=== PATIENT | female | born 1990 ===

== ENCOUNTER 2023-06-25 07:31 | Outpatient (AMB) | payer OTHER, SELFPAY ==
--- NOTE | 2023-06-25 07:38 | MHC.PC.OV ---
Vital Signs 06/25/23 07:40 Height 5 ft 5 in Weight 155 lb BMI 25.8 BP 118/80 Blood Pressure Location Rt brachial Position Sitting Pulse 74 Pulse Source Pulse Oximeter Pulse Oximetry (%) 98 Oxygen Delivery Method Room Air Intake Visit Reasons: Mirror Silverer Request PE Intake Note: Pt is here today for PE. 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 Patient moved from [facility] she works in [employer] Surgical History (Updated 06/25/23 @ 09:10 by Cindy Valencia MD) H/O right wrist surgery Family History Father Hypertension Mother No problems noted. Social History (Updated 06/25/23 @ 08:18 by Cindy Valencia MD) Household Members Other:: lives 2 children (9,8), works for [employer] Housing: House Patient Tobacco Use Status: Never used Tobacco e-Cigarette/Vaping Use: Never Used service: Yes Current occupational status: employed Cognitive needs: No Hearing needs: No Vision needs: No Questionnaire PHQ-9 Over the last 2 weeks, how often have you been bothered by any of the following problems? 1. Little interest or pleasure in doing things: not at all 2. Feeling down, depressed, or hopeless: not at all 3. Trouble falling or staying asleep, or sleeping too much: not at all 4. Feeling tired or having little energy: not at all 5. Poor appetite or overeating: not at all 6. Feeling bad about yourself - or that you are a failure or have let yourself or your family down: not at all 7. Trouble concentrating on things, such as reading the newspaper or watching television: not at all 8. Moving or speaking so slowly that other people could have noticed. Or the opposite - being so fidgety or restless that you have been moving around a lot more than usual: not at all 9. Thoughts that you would be better off or of hurting yourself in some way: not at all Total score: 0 Depression Screening Interpretation: Negative Depression Screening Done: Yes Source: Developed by Drs. Lio Landry, Anahy Natarajan, Kirk Luu and colleagues, with an educational jenny from [employer]. Thrive Questionnaire Date Thrive assessed: 06/25/23 I am a: Patient What is your living situation today?: I have a steady place to live Within the past 12 months, did the food you bought not last and you didn't have the money to get more?: Never true Within the past 12 months, did you worry whether your food would run out before you got money to buy more?: Never true Do you have trouble paying for medicines?: No Do you have trouble getting transportation to medical appointments?: No Do you have trouble paying your heating and electricity bill?: No Do you have trouble taking care of your child, family member or friend?: No Do you have trouble with day-to-day activities such as bathing, preparing meals, shopping, managing finances, etc.?: No Are you currently unemployed and looking for a job?: No Are you interested in more education?: No Please select the resources that you would like help with: None Currently or been in a relationship where the following occur: no concerns reported THRIVE Score: 0 AUDIT C Alcohol Use Questionnaire (AUDIT-C) 1. How often do you have a drink containing alcohol?: Monthly or less 2. How many drinks containing alcohol do you have on a typical day when you are drinking?: 1 or 2 3. How often do you have six or more drinks on one occasion?: Never Total Score: 1 IRISH-7 AMB Questionnaire IRISH-7 Date IRISH - 7 assessed: 06/25/23 Feeling nervous, anxious, or on edge: 0 = Not at all Not being able to stop or control worryin = Not at all Worrying too much about different things: 0 = Not at all Trouble relaxin = Not at all Being so restless that it is hard to sit still: 0 = Not at all Becoming easily annoyed or irritable: 0 = Not at all Feeling afraid as if something awful might happen: 0 = Not at all Total IRISH-7 score (0-4 normal; 5-9 mild; 10-14 moderate; 15-21 severe): 0 Source: Developed by Drs. Lio Landry, Anahy Natarajan, Kirk Luu and colleagues, with an educational jenny from [employer]. Review of Systems Const All systems reviewed & are unremarkable except as noted in HPI and below Reports no additional complaints Eyes Reports no additional complaints ENT Reports no additional complaints Card Reports no additional complaints Resp Reports no additional complaints GI Reports no additional complaints Reports no additional complaints Physical exam (Primary Care) Vital Signs: Last Vital Signs Pulse 74 06/25/23 07:40 BP 118/80 06/25/23 07:40 Pulse Ox 98 06/25/23 07:40 Oxygen Delivery Method Room Air 06/25/23 07:40 BMI result Body Mass Index 25.8 Tobacco/Smoking Status: Tobacco use Status Tobacco use date assessed 06/25/23 06/25/23 07:44 Patient Tobacco Use Status Never used Tobacco 06/25/23 08:18 e-Cigarette/Vaping Use Never Used 06/25/23 08:18 Depression Screening Interpretation: Negative Currently or been in a relationship where the following occur: no concerns reported Const General: no acute distress HENMT Head: Yes normal to inspection Ears: hearing grossly normal bilaterally General nose exam: Normal external nose present Face and sinus: Yes normal facial exam Mouth: Normal oral and palatal mucosa present Throat: Yes posterior oropharynx normal Eyes General: appearance normal, both eyes and all related structures Neck Neck: Yes no lymphadenopathy and Yes supple Resp Effort & Inspection: normal respiratory effort Auscultation: clear to auscultation bilaterally Cardio Rhythm: regular rhythm Heart sounds: S1 normal heart sound present and S2 normal heart sound present GI Inspection: Yes normal to inspection Palpation (GI): Soft to palpation Percussion: Yes normal to percussion Auscultation: normal bowel sounds Assessment and Plan Assessment & Plan (1) History of colposcopy: Comment: 2021, negative , Code(s): Z98.890 - Other specified postprocedural states (2) Hx of human papillomavirus infection: Code(s): Z86.19 - Personal history of other infectious and parasitic diseases Plan: 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 (3) Annual physical exam: Code(s): Z00.00 - Encounter for general adult medical examination without abnormal findings Plan: Well-balanced diet regular physical activity discussed with the patient she will return for fasting blood work Orders: Orders UA CC w/rflx Micro + Cult Today Z00.00 - Encounter for general adult medical examination without abnormal findings TSH reflex Free T4 Today Z00.00 - Encounter for general adult medical examination without abnormal findings Complete Blood Count Auto Diff Today Z00.00 - Encounter for general adult medical examination without abnormal findings Comprehensive [place]. Panel Fast Today Z00.00 - Encounter for general adult medical examination without abnormal findings Lipid Panel Today Z00.00 - Encounter for general adult medical examination without abnormal findings IRON PROFILE Today Z00.00 - Encounter for general adult medical examination without abnormal findings Coding Level of Care Code Est Pt Prev Care 18-39y(87915) Diagnoses History of colposcopy Z98.890 Hx of human papillomavirus infection Z86.19 Annual physical exam Z00.00
[2023-06-25 07:40] VITALS: BP 118/80; PULSE 74; O2SAT 98; BMI 25.8
== END 2023-06-25 12:55 | disposition home or self-care (01) ==
PROVIDERS: PCP Internal Medicine; Visit Provider Internal Medicine
DX: Z98.890 Other specified postprocedural states (principal); Z86.19 Personal history of other infectious and parasitic diseases; Z00.00 Encounter for general adult medical examination without abnormal findings
CPT/HCPCS: 99395

== ENCOUNTER 2024-07-19 12:37 | Outpatient (AMB) | payer OTHER, SELFPAY ==
[2024-07-19 12:39] VITALS: BP 122/78; PULSE 72; RESP 18; O2SAT 98; BMI 25.0
--- NOTE | 2024-07-19 12:39 | A.OFFPC_ITS ---
Vital Signs 07/19/24 12:39 Height 5 ft 5 in Weight 150 lb BMI 25.0 BP 122/78 Blood Pressure Location Lt brachial Position Sitting Respiration 18 Pulse 72 Pulse Source Pulse Oximeter Pulse Oximetry (%) 98 Oxygen Delivery Method Room Air Intake Visit Reasons: PE. Intake Note: Pt is here today for PE. Allergies No Known Allergies Allergy (Verified 07/19/24 12:44) Medication List - Last Reconciled 07/19/24 by Cindy Valencia MD No Known Home Meds Tobacco use date assessed: 07/19/24 Dental Screening Dental Screen Date: 07/19/24 Did you have a dental visit in the last 12 months?: Yes Did you have a dental problem in the last 6 months where you did not have access to dental care?: No Was dental information given to patient?: Patient has dentist HPI PE. HPI Details Patient presents for physical PFS Medical History (Updated 07/19/24 @ 15:42 by Cindy Valencia MD) Hx of human papillomavirus infection Annual physical exam Surgical History (Updated 07/19/24 @ 15:42 by Cindy Valencia MD) History of colposcopy H/O right wrist surgery Family History (Updated 07/19/24 @ 13:28 by Cindy Valencia MD) Father Hypertension Prostate CA Mother No problems noted. Social History Household Members Other:: lives 2 children (9,8), works for [employer] Housing: House Patient Tobacco Use Status: Never used Tobacco e-Cigarette/Vaping Use: Never Used service: Yes Current occupational status: employed Cognitive needs: No Hearing needs: No Vision needs: No Questionnaire PHQ-9 Over the last 2 weeks, how often have you been bothered by any of the following problems? 1. Little interest or pleasure in doing things: not at all 2. Feeling down, depressed, or hopeless: not at all 3. Trouble falling or staying asleep, or sleeping too much: not at all 4. Feeling tired or having little energy: not at all 5. Poor appetite or overeating: not at all 6. Feeling bad about yourself - or that you are a failure or have let yourself or your family down: not at all 7. Trouble concentrating on things, such as reading the newspaper or watching television: not at all 8. Moving or speaking so slowly that other people could have noticed. Or the opposite - being so fidgety or restless that you have been moving around a lot more than usual: not at all 9. Thoughts that you would be better off or of hurting yourself in some way: not at all Total score: 0 Depression Screening Interpretation: Negative Depression Screening Done: Yes 29591 - PHQ-9 Billing: Yes Source: Developed by Drs. Lio Landry, Anahy Natarajan, Kirk Luu and colleagues, with an educational jenny from [employer]. Thrive Questionnaire Date Thrive assessed: 07/19/24 I am a: Patient What is your living situation today?: I have a steady place to live Within the past 12 months, did the food you bought not last and you didn't have the money to get more?: Never true Within the past 12 months, did you worry whether your food would run out before you got money to buy more?: Never true Do you have trouble paying for medicines?: No Do you have trouble getting transportation to medical appointments?: No Do you have trouble paying your heating and electricity bill?: No Do you have trouble taking care of your child, family member or friend?: No Do you have trouble with day-to-day activities such as bathing, preparing meals, shopping, managing finances, etc.?: No Are you currently unemployed and looking for a job?: No Are you interested in more education?: No Please select the resources that you would like help with: None Currently or been in a relationship where the following occur: I choose not to answer THRIVE Score: 0 AUDIT C Alcohol Use Questionnaire (AUDIT-C) 1. How often do you have a drink containing alcohol?: 2-4 times a month 2. How many drinks containing alcohol do you have on a typical day when you are drinking?: 1 or 2 3. How often do you have six or more drinks on one occasion?: Never Total Score: 2 IRISH-7 AMB Questionnaire IRISH-7 Date IRISH - 7 assessed: 07/19/24 Feeling nervous, anxious, or on edge: 0 = Not at all Not being able to stop or control worryin = Not at all Worrying too much about different things: 0 = Not at all Trouble relaxin = Not at all Being so restless that it is hard to sit still: 0 = Not at all Becoming easily annoyed or irritable: 0 = Not at all Feeling afraid as if something awful might happen: 0 = Not at all Total IRISH-7 score (0-4 normal; 5-9 mild; 10-14 moderate; 15-21 severe): 0 Source: Developed by Drs. Lio Landry, Anahy Natarajan, Kirk Luu and colleagues, with an educational jenny from [employer]. IRISH-7 Assessment Billing IRISH-7 Assessment Tool: IRISH-7 Assessment 85506 Review of Systems Const All systems reviewed & are unremarkable except as noted in HPI and below Eyes Reports no additional complaints ENT Reports no additional complaints Card Reports no additional complaints Resp Reports no additional complaints GI Reports no additional complaints Reports no additional complaints Physical exam (Primary Care) Vital Signs: Last Vital Signs Pulse 72 07/19/24 12:39 Resp 18 07/19/24 12:39 BP 122/78 07/19/24 12:39 Pulse Ox 98 07/19/24 12:39 Oxygen Delivery Method Room Air 07/19/24 12:39 BMI result Body Mass Index 25.0 Tobacco/Smoking Status: Tobacco use Status Tobacco use date assessed 07/19/24 07/19/24 12:45 Patient Tobacco Use Status Never used Tobacco 07/19/24 12:45 e-Cigarette/Vaping Use Never Used 07/19/24 12:40 PHQ-9: PHQ-9 Score PHQ-9: Total score 0 07/19/24 13:29 Depression Screening Interpretation: Negative Thrive Assessment: Date of Thrive Assessment Date Thrive assessed 07/19/24 07/19/24 12:48 Currently or been in a relationship where the following occur: I choose not to answer Const General: no acute distress HENMT Head: Yes normal to inspection Face and sinus: Yes normal facial exam Mouth: Normal oral and palatal mucosa present Eyes General: appearance normal, both eyes and all related structures Neck Neck: Yes no lymphadenopathy and Yes supple Resp Effort & Inspection: normal respiratory effort Auscultation: clear to auscultation bilaterally Cardio Rhythm: regular rhythm Heart sounds: S1 normal heart sound present and S2 normal heart sound present GI Inspection: Yes normal to inspection Palpation (GI): Soft to palpation Percussion: Yes normal to percussion Auscultation: normal bowel sounds Coding Level of Care Code Est Pt Prev Care 18-39y(00599) Diagnoses Annual physical exam Z. Hx of human papillomavirus infection Z86.19 Additional Codes IRISH-7 Assessment Billing - IRISH-7 Assessment Tool: IRISH-7 Assessment 90617 ([id number]) PHQ-9 - 44869 - PHQ-9 Billing: Yes ([id number]) Assessment & Plan Assessment & Plan (1) Annual physical exam: Code(s): Z00. - Encounter for general adult medical examination without abnormal findings Category: Medical Plan: Well-balanced diet regular physical activity discussed with the patient she will return for fasting blood work (2) Hx of human papillomavirus infection: Comment: nl pap 2023 Code(s): Z86.19 - Personal history of other infectious and parasitic diseases Category: Medical Plan: Patient is established with mortgage originator Orders: Orders Complete Blood Count Auto Diff Today Z00.00 - Encounter for general adult medical examination without abnormal findings, Z86.19 - Personal history of other infectious and parasitic diseases Comprehensive [place]. Panel Fast Today Z00.00 - Encounter for general adult med ical examination without abnormal findings, Z86.19 - Personal history of other infectious and parasitic diseases Lipid Panel Today Z00.00 - Encounter for general adult medical examination without abnormal findings, Z86.19 - Personal history of other infectious and parasitic diseases
--- OUTSIDE RECORDS SUMMARY | 2024-07-19 13:08 | XMS_ITS | Continuity of Care Document ---
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 currently on any profile or limited duty for that condition? [ ] Conditions 4. [ No ] Have you been based or stationed at a location where an open burn pit was used? 5. [ No ] Have you been exposed to toxic airborne chemicals or other airborne contaminants? 8. Have you had any surgery since your last PHA?: No 10.a. [ No ] Since your last PHA, has a health care provider recommended surgery(s) that you have not had? 11.a. [ No ] Do you currently require hearing aids, special medical supplies, CPAP, adaptive equipment, assistive technology devices, and/or other special accommodations? 12.a. [ No ] Do you have a waiver or profile for any part of your Service's physical fitness test? 13.a. [ No ] Do you have any problems wearing a gas mask, ballistic helmet, body armor, and/or chemical/biological protective garments? 14.a. [ No ] Have you ever been told by a health care provider that you SHOULD NOT receive an immunization for medical reasons? 15.a. [ No ] Do you have a permanent profile or an Assignment Limitation Code C? 16.a. [ No ] Are you on a temporary profile or limited duty? 17. [ 0 ] During the PAST 2 years, how many times have you been placed on a temporary profile or on limited duty? V. INDIVIDUAL MEDICAL READINESS (IMR) 1. [ Yes ] Do you have any allergies? 2. [ Oswaldo ] Allergy List 3. [ Not required ] Do you have red medical warning dog tags? 4. [ Yes ] Do you wear corrective lenses? 5. [ 0 ] How many pairs of glasses do you have? 6. [ No ] Do you have gas mask inserts? . BEHAVIORAL HEALTH (MHA) 1. a. [ None ] Over the PAST MONTH, what major life stressors have you experienced that are a cause of significant concern or make it difficult for you to do your work, take care of things at home, or get along with other people (for example, serious conflicts with others, relationship problems, or a legal, disciplinary or financial problem)? 2. a. [ No ] In the PAST YEAR did you receive care for any mental health condition or concern such as, but not limited to post traumatic stress disorder (PTSD), depression, anxiety disorder, alcohol abuse or substance abuse? 3. [ None ] What prescription or over-the counter medications (including herbals/supplements) for sleep, pain, combat stress, or a mental health problem are you CURRENTLY taking? 4. a. [ No ] In the past 12 months, have you gambled? 5. a. [ Monthly or less ] How often do you have a drink containing alcohol? 5. b. [ 1 or 2 ] How many drinks containing alcohol do you have on a typical day when you are drinking? 5. c. [ Never ] How often do you have six or more drinks on one occasion? 6. Have you ever had any experience that was so frightening, horrible, or upsetting that in the PAST MONTH, you: 6. a. [ No ] Have had nightmares about it or thought about it when you did not want to? 6. b. [ No ] Tried hard not to think about it or went out of your way to avoid situations that remind you of it? 6. c. [ No ] Were constantly on guard, watchful or easily startled? 6. d. [ No ] Offerman numb or detached from others, activities, or your surroundings? 6. e. [ Not answered ] Offerman guilt or unable to stop blaming yourself or others for the event(s) or any problems the event(s) may have caused? 7. Over the LAST 2 WEEKS, how often have you been bothered by the following problems? 7. a. [ More than half the days ] Little interest or pleasure in doing things 7. b. [ Not at all ] Feeling down, depressed, or hopeless 7. c. [ Not at all ] Trouble falling/staying asleep, sleeping too much. 7. d. [ Not at all ] Feeling tired or having little energy. 7. e. [ Not at all ] Poor appetite or overeating. 7. f. [ Not at all ] Feeling bad about yourself - or that you are a failure or have let yourself or your family down. 7. g. [ Not at all ] Trouble concentrating on things, such as reading the newspaper or watching television. 7. h. [ Not at all ] Moving or speaking so slowly that other people could have noticed. Or the opposite - being so fidgety that you have been moving around a lot more than usual. 7. i. [ Not difficult at all ] How difficult have these problems (7a through 7h) made it for you to do your work, take care of things at home, or get along with other people? 8. [ No ] Would you like to schedule an appointment with a health care provider to discuss any health concern(s)? 9. [ No ] Are you interested in receiving information or assistance for a stress, emotional or alcohol concern? 10. [ No ] Are you interested in receiving assistance for a family or relationship concern? 11. [ No ] Would you like to schedule a visit with a director of media, mental health care provider, or a community support counselor? VII. FAMILY HISTORY AND LIFESTYLE (LIF) 1. [ Very Good ] Overall, how would you rate your health during the PAST MONTH? 2. [ Heart-related conditio ] Member indicates that family members have the following problems 4. The following family members has/had a history of heart-related conditions: High Blood Pressure: Father 6. [ No ] I participate in moderate intensity physical activites at least 2.5 hours, or a combination of moderate and vigorous aerobic activites, for at least 75 minutes per week. 7. In a typical week, I do physical activities specifically designed to STRENGTHEN my muscles: [ 3 ] Day(s) per week 8. [ None ] What prescriptions or [id number]-[id number] medications are you CURRENTLY taking for health problems on a ROUTINE BASIS? 9. Which of the following products have you taken since your last PHA: Protein Supplements/Creatine: Every other day Herbal or Botanical Supplements in pills, gels, and/or tablet form: Once a day Multi-Vitamins: Once a day Individual Vitamins or Minerals: Once a day Marion-3 Supplements: Less than once a month Vitamin D: Less than once a month 11. Think about the PAST 30 DAYS. How often did you eat/drink the following foods/beverages? [ 2 servings per day ] Fruits [ 2 servings per day ] Vegetables [ 3 to 6 servings per week ] Starchy Vegetables [ 1 or 2 servings per week ] Whole Grains [ 2 servings per day ] Dairy and Calcium Containing Foods [ 3 to 6 servings per week ] Fish [ 2 servings per day ] Lean Protein [ 2 servings per day ] Sugar-Sweetened Beverages ] Have you had a cholesterol check by a health director of patient care within the PAST 5 YEARS? 13.a. In the PAST 30 DAYS, which of the following products have you used on at least one day? None 15. Which of the following best describes your past tobacco use? I have never used tobacco products. 16. [ No ] Are you regularly exposed to secondhand smoke? 17. [ 5 to less than 7 hours ] During the LAST 2 WEEKS, how many hours of sleep did you get on most days? 18. [ No ] During the LAST 2 WEEKS, have you felt impaired or unable to adequately perform due to sleepiness or poor quality sleep? 19. [ No ] Have you had any unexplained weight loss or gain since your last PHA? 20. Member is at risk for sexually transmitted infections. 22. Since your last PHA, what, if anything, have you and your partner used to keep from getting ? [ Withdrawal, Rhythm ] I am actively taking steps to prevent , including 23. [ No ] In the last year, have you or your partner had a scare, where you were not trying to get but were worried enough to use a home test? VIII. WOMEN'S HEALTH (WOM) 1. [ No ] Do you wish to receive contraceptive counseling? 2. [ I am not now, and was not or delivered in the past 12 months ] Which of the following best describes you? 3. [ No ] Have you had a total hysterectomy? 4. [ No ] Are you postmenopausal and no longer experiencing menstrual cycles? 5. [ No ] Are you currently taking folic acid or a vitamin containing folic acid 6. [ Yes, and I am having ongoing issues ] Do you have heavy and/or irregular menstrual cycles/pain or premenstrual syndrome (PMS)? 7. [ No ] Do you have recurrent urinary tract infections? 8. [ Yes ] Have you had a Pap test within the PAST 3 YEARS? 9. [ No ] Have you ever had an abnormal Pap Test? 12. [ No ] Have you had a syphillis, chlamydia, and gonorrhea test since your last PHA? 13. [ No ] Do you have a history of gestational diabetes? X. OTHER MEDICAL (OTH) 1. [ 0 ] Rate the amount of pain you have had, on average, over the PAST 24 HOURS 3. [ No ] Since your last PHA, have you received care or treatment for any medical and/or mental health condition(s) from a civilian or non- facility? 5. Member acknowledged responsibility for reporting health issues. 7. [ No ] Woud you like to schedule an appointment with a health care provider to discuss any health concerns? XI. SEPARATION AND LONG-TERM 1. 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 PART B. RECORD REVIEW AND RECOMMENDATIONS I. RECORD REVIEWER INFORMATION 1. Last Name: ERNA 2. First Name: MELINDA 3. Middle Name: [place] 4. Service Branch: [employer] 5. 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 EMAIL: [email or web address] 8. Facility: [facility] 9. Unit: [facility] 10. Address: [address] [place] [address] 11. State: [place] 12. Zip Code: [address] 13. 14. Date Record Review: II. MEDICAL SCREENING 1. 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 [ 5 feet 5 inches Date: ] engineering faculty member's most recently documented height 3. [ 148 pounds Date: ] engineering faculty member's most recently documented weight 4. [ 130/87 Date: ] engineering faculty member's most recently documented blood pressure reading 5. [ Yes ] Does the engineering faculty member have a history of abnormal blood pressure since their last PHA? 6. [ Yes ] Does the engineering faculty member have a laboratory test of sickle cell trait documented in their permanent medical record? 7. [ No Cholesterol Test Documented ] What is the date of the engineering faculty member's most recently documented cholesterol test? 9. [ No Active Medications Documented ] List of engineering faculty member's active medications listed in their permanent medical record 10. [ No ] Is there a discrepancy between the active medication record review and the engineering faculty member's self-reported list of medications? 11. [ No Outside Care Documented ] List documented significant care the engineering faculty member has received since their last PHA from a provider OUTSIDE the Health System 12. [ No ] Is there a discrepancy between the engineering faculty member's list of OUTSIDE care (from OTH5), and the OUTSIDE care found in the record? 13. [ No Inside Care Documented ] List documented significant care the engineering faculty member has received since their last PHA from a provider INSIDE the Health System 15. [ Not Answered ] Confirm that vaccine exemptions are listed in the medical record for each vaccine listed 16. [ No Discrepancies Noted ] Review available medical documentation of allergies and compare with engineering faculty member responses. Document any discrepancies IV. FAMILY HISTORY AND LIFESTYLE 1. [ Yes ] Does the [id number] reflect the engineering faculty member's reported family history? V. WOMEN'S HEALTH 3. [ Normal ] Date and result of the most recent Pap test 4. [ ] Notes from review of health records associated with history of abnormal Pap, colposcopy, excisional procedure, or cryotherapy6. [ No ] Is there a record of the engineering faculty member receiving a syphilis, chlamydia, and gonorrhea test since her last PHA? VII. INDIVIDUAL MEDICAL READINESS 1. [ No ] Does the engineering faculty member have an Assignment Limitation Code C? 3. [ Classification: 1 ] Most recently documented dental exam 4. [ Yes ] Is the engineering faculty member current on all required immunizations in the immunization tracking system? 5. [ No, engineering faculty member needs: Optometry ] Is the engineering faculty member current with Service-specific requirements for glasses and gas mask inserts? 6. Does the engineering faculty member have the following laboratory tests documented in their permanent medical record? [ Yes ] HIV test within the PAST 24 months [ Yes ] G6PD results on file [ Yes ] Blood type and Rh on file [ Yes ] DNA test on file IX. ADDITIONAL RECORD REVIEWER COMMENTS 1. This record review indicates the potential need for provider notification or referral: Provider Notified 2. Additional comments about this record review that need to be forwarded to the Health Manager Combination completing PART C: Depression screen score 2 Reported multiple health conditions did not get med tx Positive Mh responses Supplements- protein/creatine, herbal or botanical, multi vit, ind vit/minerals, omega 3, Vit D Reported 2 servings per day of sugar sweetened beverages Mbr reported being at risk for STI/STD. - no test in JLV Mbr reported heavy and/or irregular menstrual cycles or PMS and is having ongoing issues Date Record Review Completed: PART C. HEALTH CARE PROVIDER I. MENTAL HEALTH ASSESSMENT (MHA) PROVIDER INFORMATION 1. Last Name: Rosario 2. First Name: Rahel 3. Middle Name: 4. 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 EMAIL: [email or web address] 8. Facility: [facility] Admin Office 9. Unit: N/A 10. Address: [facility] [place] 11. State: [place] 12. Zip Code: [address] 13. 14. Date HCP Review initiated: 1. Member marked that they did not have a concern or a difficulty with a major life stressor. 2. Address concerns identified on member questions 2 and 3. History of mental health care: N/A Member's response: Provider's comments: Medications: N/A Member's response: Provider's comments: 3. Member's AUDIT-C screening score was 1. (nothing required) 4. Member did not radha yes on two or more of questions 6a through 6e. 5. Member marked more than half the days or nearly every day on question 7a or 7b. PHQ-8 score: 2 Referral is not indicated because situational situation re:work. 6. Suicide risk evaluation. 6. a. Ask: Over the past month, have you wished you were or wished you could go to sleep and not wake up?: No 6. b. Ask: Have you actually had any thoughts of killing yourself?: No 6. f. 1. Ask: In you lifetime, have you done anything, started to do anything, or prepared to do anything to end your life?: No 6. g. Further risk assessment comments: na 7. Member states that they have not had thoughts or concerns over the past month that they might hurt or lose control with someone. 9. Summary of Provider's identified concerns needing referrals: None 11. Comments: question 7A related to current work situation 13. Supplemental services recommended/information provided: No supplemental services required Date MHA Certified: III. PERIODIC HEALTH ASSESSMENT (PHA) PROVIDER INFORMATION 1. Last Name: ANGELA 2. First Name: SHELLY 3. Middle Name: 4. Service Branch: [employer] [facility] 5. 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 EMAIL: [email or web address] 8. Facility: [facility] 9. Unit: [facility] 10. Address: [address] [place] [address] 11. State: [place] 12. Zip Code: [address] 13. Phone: [phone] 14. Date HCP Review initiated: IV. PERIODIC HEALTH ASSESSMENT PROVIDER RECOMMENDATIONS and REFERRALS 1. Provider concerns with this assessment: No issues or concerns identified V. SUMMARY AND COMMENTS 1. Additional information summarizing findings during the engineering faculty member assessment: 2. Provider Comments: . INDIVIDUAL MEDICAL READINESS DISPOSITION DETERMINATION MELIA: Ready DEN: Ready IMM: Ready LAB: Ready ME: Ready IMR Status: Fully Medically Ready VII. 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 Reference [facility] 6490.07 Yes (engineering faculty member DOES NOT currently have a medical condition that limits deployability) Date PHA Completed: END OF [id number] REPORT -- Impression:Meets?medical standards per YO 48-123/MSD. Disposition:?No AF469 changes based on this encounter.[employer] Qualified. Extracted from:Title: TD Author: CARMITA WATSON Date: 04/19/23 Vaccination given 07/19/2024 [id number] AMDS Assessment and Plan Extracted from:Title : PHA/MHA Author: SOFIA LAKE Date: 06/16/24 Mbr came in for appt Addendum by MELINDA UMANZOR on June 16, 2024 09:24 EDT ?Vitals: Blood Pressure:???128/91 Heart Rate: 68 Height: 66 Weight: 150 Medications: None Chronic Problems: None SF 507: N/A Comments: Addendum by SHELLY MILLER on June 16, 2024 09:44 EDT Chief Complaint: Member here for annual PHA.?No acute complaints.?IMR?green. 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 Last Name: ZONIA 2. First Name: KATHY 3. Middle Name: Ina 4. Assessment Date: 5. : 6. Age: 34 7. Sex: F 8. DoD ID Number: [id number] 9. Service Branch: [employer] 10. 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 Status: [employer] 12. Pay Grade: E05 13. Unit Name: [address] [address] 14. Duty Station/Location: [place] 15. UIC: [id number] 16. Is this your first Periodic Health Assessment (PHA)?: N 17. Are you enrolled in a secure messaging system with your health care provider?: Y 18. Current contact information: Preferred Method: Day Time Phone DSN: Day Time Phone: [phone] Night Time Phone: [phone] Email 1: [email or web address] Email 2: Address: [address] [place] [address] City: [place] State: [place] Zip Code: [address] 19. Point of contact who can always reach you: Name: Fanny Martell Phone 1: [phone] Phone 2: EMAIL: Address: City: State: Zip Code: II. DEPLOYMENT INFORMATION (DEP) 1. [ 0 ] Total number of deployments in the PAST 5 YEARS 4. [ N ] Are you going to deploy within the NEXT 120 DAYS? III. 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 [ No ] Does your specialty require an operational duty physical exam? 4. [ No ] Are you currently enrolled in a medical surveillance/occupational health program?: No IV. MEDICAL CONDITIONS (MELIA): 1. Since your last PHA, have you experienced any of the following health conditions, and if so, what is your status? [ Change in vision, Periods of dizziness, fainting, or loss of consciousness, Persistent or recurring noises in head or ears ] Conditions with no medical care [ ] Conditions with medical care, but no longer under treatment [ ] Conditions with medical care, and NOW under treatment 2. Since your last PHA, have you experienced any of the following health conditions, and if so, what is your status? [ ] Conditions with no medical care [ ] Conditions with medical care, but no longer under treatment [ ] Conditions with medical care, and NOW under treatment 3. For any condition marked YES in question 1 or 2, are you currently on any profile or limited duty for that condition? [ ] Conditions 4. [ No ] Have you been based or stationed at a location where an open burn pit was used? 5. [ No ] Have you been exposed to toxic airborne chemicals or other airborne contaminants? 8. Have you had any surgery since your last PHA?: No 10.a. [ No ] Since your last PHA, has a health care provider recommended surgery(s) that you have not had? 11.a. [ No ] Do you currently require hearing aids, special medical supplies, CPAP, adaptive equipment, assistive technology devices, and/or other special accommodations? 12.a. [ No ] Do you have a waiver or profile for any part of your Service's physical fitness test? 13.a. [ No ] Do you have any problems wearing a gas mask, ballistic helmet, body armor, and/or chemical/biological protective garments? 14.a. [ No ] Have you ever been told by a health care provider that you SHOULD NOT receive an immunization for medical reasons? 15.a. [ No ] Do you have a permanent profile or an Assignment Limitation Code C? 16.a. [ No ] Are you on a temporary profile or limited duty? 17. [ 0 ] During the PAST 2 years, how many times have you been placed on a temporary profile or on limited duty? V. INDIVIDUAL MEDICAL READINESS (IMR) 1. [ Yes ] Do you have any allergies? 2. [ Oswaldo ] Allergy List 3. [ Not required ] Do you have red medical warning dog tags? 4. [ Yes ] Do you wear corrective lenses? 5. [ 0 ] How many pairs of glasses do you have? 6. [ No ] Do you have gas mask inserts? . BEHAVIORAL HEALTH (MHA) 1. a. [ None ] Over the PAST MONTH, what major life stressors have you experienced that are a cause of significant concern or make it difficult for you to do your work, take care of things at home, or get along with other people (for example, serious conflicts with others, relationship problems, or a legal, disciplinary or financial problem)? 2. a. [ No ] In the PAST YEAR did you receive care for any mental health condition or concern such as, but not limited to post traumatic stress disorder (PTSD), depression, anxiety disorder, alcohol abuse or substance abuse? 3. [ None ] What prescription or over-the counter medications (including herbals/supplements) for sleep, pain, combat stress, or a mental health problem are you CURRENTLY taking? 4. a. [ No ] In the past 12 months, have you gambled? 5. a. [ Monthly or less ] How often do you have a drink containing alcohol? 5. b. [ 1 or 2 ] How many drinks containing alcohol do you have on a typical day when you are drinking? 5. c. [ Never ] How often do you have six or more drinks on one occasion? 6. Have you ever had any experience that was so frightening, horrible, or upsetting that in the PAST MONTH, you: 6. a. [ No ] Have had nightmares about it or thought about it when you did not want to? 6. b. [ No ] Tried hard not to think about it or went out of your way to avoid situations that remind you of it? 6. c. [ No ] Were constantly on guard, watchful or easily startled? 6. d. [ No ] Offerman numb or detached from others, activities, or your surroundings? 6. e. [ Not answered ] Offerman guilt or unable to stop blaming yourself or others for the event(s) or any problems the event(s) may have caused? 7. Over the LAST 2 WEEKS, how often have you been bothered by the following problems? 7. a. [ More than half the days ] Little interest or pleasure in doing things 7. b. [ Not at all ] Feeling down, depressed, or hopeless 7. c. [ Not at all ] Trouble falling/staying asleep, sleeping too much. 7. d. [ Not at all ] Feeling tired or having little energy. 7. e. [ Not at all ] Poor appetite or overeating. 7. f. [ Not at all ] Feeling bad about yourself - or that you are a failure or have let yourself or your family down. 7. g. [ Not at all ] Trouble concentrating on things, such as reading the newspaper or watching television. 7. h. [ Not at all ] Moving or speaking so slowly that other people could have noticed. Or the opposite - being so fidgety that you have been moving around a lot more than usual. 7. i. [ Not difficult at all ] How difficult have these problems (7a through 7h) made it for you to do your work, take care of things at home, or get along with other people? 8. [ No ] Would you like to schedule an appointment with a health care provider to discuss any health concern(s)? 9. [ No ] Are you interested in receiving information or assistance for a stress, emotional or alcohol concern? 10. [ No ] Are you interested in receiving assistance for a family or relationship concern? 11. [ No ] Would you like to schedule a visit with a director of media, mental health care provider, or a community support counselor? VII. FAMILY HISTORY AND LIFESTYLE (LIF) 1. [ Very Good ] Overall, how would you rate your health during the PAST MONTH? 2. [ Heart-related conditio ] Member indicates that family members have the following problems 4. The following family members has/had a history of heart-related conditions: High Blood Pressure: Father 6. [ No ] I participate in moderate intensity physical activites at least 2.5 hours, or a combination of moderate and vigorous aerobic activites, for at least 75 minutes per week. 7. In a typical week, I do physical activities specifically designed to STRENGTHEN my muscles: [ 3 ] Day(s) per week 8. [ None ] What prescriptions or [id number] medications are you CURRENTLY taking for health problems on a ROUTINE BASIS? 9. Which of the following products have you taken since your last PHA: Protein Supplements/Creatine: Every other day Herbal or Botanical Supplements in pills, gels, and/or tablet form: Once a day Multi-Vitamins: Once a day Individual Vitamins or Minerals: Once a day Marion-3 Supplements: Less than once a month Vitamin D: Less than once a month 11. Think about the PAST 30 DAYS. How often did you eat/drink the following foods/beverages? [ 2 servings per day ] Fruits [ 2 servings per day ] Vegetables [ 3 to 6 servings per week ] Starchy Vegetables [ 1 or 2 servings per week ] Whole Grains [ 2 servings per day ] Dairy and Calcium Containing Foods [ 3 to 6 servings per week ] Fish [ 2 servings per day ] Lean Protein [ 2 servings per day ] Sugar-Sweetened Beverages ] Have you had a cholesterol check by a health director of patient care within the PAST 5 YEARS? 13.a. In the PAST 30 DAYS, which of the following products have you used on at least one day? None 15. Which of the following best describes your past tobacco use? I have never used tobacco products. 16. [ No ] Are you regularly exposed to secondhand smoke? 17. [ 5 to less than 7 hours ] During the LAST 2 WEEKS, how many hours of sleep did you get on most days? 18. [ No ] During the LAST 2 WEEKS, have you felt impaired or unable to adequately perform due to sleepiness or poor quality sleep? 19. [ No ] Have you had any unexplained weight loss or gain since your last PHA? 20. Member is at risk for sexually transmitted infections. 22. Since your last PHA, what, if anything, have you and your partner used to keep from getting ? [ Withdrawal, Rhythm ] I am actively taking steps to prevent , including 23. [ No ] In the last year, have you or your partner had a scare, where you were not trying to get but were worried enough to use a home test? VIII. WOMEN'S HEALTH (WOM) 1. [ No ] Do you wish to receive contraceptive counseling? 2. [ I am not now, and was not or delivered in the past 12 months ] Which of the following best describes you? 3. [ No ] Have you had a total hysterectomy? 4. [ No ] Are you postmenopausal and no longer experiencing menstrual cycles? 5. [ No ] Are you currently taking folic acid or a vitamin containing folic acid 6. [ Yes, and I am having ongoing issues ] Do you have heavy and/or irregular menstrual cycles/pain or premenstrual syndrome (PMS)? 7. [ No ] Do you have recurrent urinary tract infections? 8. [ Yes ] Have you had a Pap test within the PAST 3 YEARS? 9. [ No ] Have you ever had an abnormal Pap Test? 12. [ No ] Have you had a syphillis, chlamydia, and gonorrhea test since your last PHA? 13. [ No ] Do you have a history of gestational diabetes? X. OTHER MEDICAL (OTH) 1. [ 0 ] Rate the amount of pain you have had, on average, over the PAST 24 HOURS 3. [ No ] Since your last PHA, have you received care or treatment for any medical and/or mental health condition(s) from a civilian or non- facility? 5. Member acknowledged responsibility for reporting health issues. 7. [ No ] Woud you like to schedule an appointment with a health care provider to discuss any health concerns? XI. SEPARATION AND LONG-TERM 1. 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 PART B. RECORD REVIEW AND RECOMMENDATIONS I. RECORD REVIEWER INFORMATION 1. Last Name: ERNA 2. First Name: MELINDA 3. Middle Name: [place] 4. Service Branch: [employer] 5. 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 EMAIL: [email or web address] 8. Facility: [address] [facility] 9. Unit: [address] [facility] [address] [address] 10. Address: [place] 11. State: [place] 12. Zip Code: [address] 13. 14. Date Record Review: II. MEDICAL SCREENING 1. 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 [ 5 feet 5 inches Date: ] engineering faculty member's most recently documented height 3. [ 148 pounds Date: ] engineering faculty member's most recently documented weight 4. [ 130/87 Date: ] engineering faculty member's most recently documented blood pressure reading 5. [ Yes ] Does the engineering faculty member have a history of abnormal blood pressure since their last PHA? 6. [ Yes ] Does the engineering faculty member have a laboratory test of sickle cell trait documented in their permanent medical record? 7. [ No Cholesterol Test Documented ] What is the date of the engineering faculty member's most recently documented cholesterol test? 9. [ No Active Medications Documented ] List of engineering faculty member's active medications listed in their permanent medical record 10. [ No ] Is there a discrepancy between the active medication record review and the engineering faculty member's self-reported list of medications? 11. [ No Outside Care Documented ] List documented significant care the engineering faculty member has received since their last PHA from a provider OUTSIDE the Health System 12. [ No ] Is there a discrepancy between the engineering faculty member's list of OUTSIDE care (from OT5), and the OUTSIDE care found in the record? 13. [ No Inside Care Documented ] List documented significant care the engineering faculty member has received since their last PHA from a provider INSIDE the Health System 15. [ Not Answered ] Confirm that vaccine exemptions are listed in the medical record for each vaccine listed 16. [ No Discrepancies Noted ] Review available medical documentation of allergies and compare with engineering faculty member responses. Document any discrepancies IV. FAMILY HISTORY AND LIFESTYLE 1. [ Yes ] Does the [id number] reflect the engineering faculty member's reported family history? V. WOMEN'S HEALTH 3. [ Normal ] Date and result of the most recent Pap test 4. [ ] Notes from review of health records associated with history of abnormal Pap, colposcopy, excisional procedure, or cryotherapy6. [ No ] Is there a record of the engineering faculty member receiving a syphilis, chlamydia, and gonorrhea test since her last PHA? VII. INDIVIDUAL MEDICAL READINESS 1. [ No ] Does the engineering faculty member have an Assignment Limitation Code C? 3. [ Classification: 1 ] Most recently documented dental exam 4. [ Yes ] Is the engineering faculty member current on all required immunizations in the immunization tracking system? 5. [ No, engineering faculty member needs: Optometry ] Is the engineering faculty member current with Service-specific requirements for glasses and gas mask inserts? 6. Does the engineering faculty member have the following laboratory tests documented in their permanent medical record? [ Yes ] HIV test within the PAST 24 months [ Yes ] G6PD results on file [ Yes ] Blood type and Rh on file [ Yes ] DNA test on file IX. ADDITIONAL RECORD REVIEWER COMMENTS 1. This record review indicates the potential need for provider notification or referral: Provider Notified 2. Additional comments about this record review that need to be forwarded to the Health Manager Combination completing PART C: Depression screen score 2 Reported multiple health conditions did not get med tx Positive Mh responses Supplements- protein/creatine, herbal or botanical, multi vit, ind vit/minerals, omega 3, Vit D Reported 2 servings per day of sugar sweetened beverages Mbr reported being at risk for STI/STD. - no test in [facility] Mbr reported heavy and/or irregular menstrual cycles or PMS and is having ongoing issues Date Record Review Completed: PART C. HEALTH CARE PROVIDER I. MENTAL HEALTH ASSESSMENT (MHA) PROVIDER INFORMATION 1. Last Name: Rosario 2. First Name: Rahel 3. Middle Name: 4. 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 EMAIL: [email or web address] 8. Facility: [facility] Admin Office 9. Unit: N/A 10. [facility] 11. State: [place] 12. Zip Code: [address] 13. 14. Date HCP Review initiated: 1. Member marked that they did not have a concern or a difficulty with a major life stressor. 2. Address concerns identified on member questions 2 and 3. History of mental health care: N/A Member's response: Provider's comments: Medications: N/A Member's response: Provider's comments: 3. Member's AUDIT-C screening score was 1. (nothing required) 4. Member did not radha yes on two or more of questions 6a through 6e. 5. Member marked more than half the days or nearly every day on question 7a or 7b. PHQ-8 score: 2 Referral is not indicated because situational situation re:work. 6. Suicide risk evaluation. 6. a. Ask: Over the past month, have you wished you were or wished you could go to sleep and not wake up?: No 6. b. Ask: Have you actually had any thoughts of killing yourself?: No 6. f. 1. Ask: In you lifetime, have you done anything, started to do anything, or prepared to do anything to end your life?: No 6. g. Further risk assessment comments: na 7. Member states that they have not had thoughts or concerns over the past month that they might hurt or lose control with someone. 9. Summary of Provider's identified concerns needing referrals: None 11. Comments: question 7A related to current work situation 13. Supplemental services recommended/information provided: No supplemental services required Date MHA Certified: III. PERIODIC HEALTH ASSESSMENT (PHA) PROVIDER INFORMATION 1. Last Name: ANGELA 2. First Name: SHELLY 3. Middle Name: 4. Service Branch: [employer] 5. 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 EMAIL: [email or web address] 8. Facility: [facility] 9. Unit: [address] [place], [place] [address] 10. Address: [address] [place] [address] 11. State: [place] 12. Zip Code: [address] 13. Phone: [phone] 14. Date HCP Review initiated: IV. PERIODIC HEALTH ASSESSMENT PROVIDER RECOMMENDATIONS and REFERRALS 1. Provider concerns with this assessment: No issues or concerns identified V. SUMMARY AND COMMENTS 1. Additional information summarizing findings during the engineering faculty member assessment: 2. Provider Comments: . INDIVIDUAL MEDICAL READINESS DISPOSITION DETERMINATION MELIA: Ready DEN: Ready IMM: Ready LAB: Ready ME: Ready IMR Status: Fully Medically Ready VII. 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 Reference Addison 6490.07 Yes (engineering faculty member DOES NOT currently have a medical condition that limits deployability) Date PHA Completed: END OF [id number] REPORT -- Impression:Meets?medical standards per DAFMAN [id number]/MSD. Disposition:?No AF469 changes based on this encounter.[employer] Qualified. Extracted from:Title: TD Author: CARMITA WATSON Date: 04/19/23 Vaccination given 07/19/2024 [id number] [facility] Functional Status Combined list of recent functional and cognitive assessments recorded at Department of Defense and Veterans Affairs (VA).VA Functional [place] Measurement (FIM) Scale: 1 = Total Assistance (Subject = 0% +), 2 = Maximal Assistance (Subject = 25% +), 3 = Moderate Assistance (Subject = 50% +), 4 = Minimal Assistance (Subject = 75% +), 5 = Supervision, 6 = Modified [place] (Device), 7 = Complete [place] (Timely, Safely). Assessment Date/Time Source Assessment Type Assessment Skill Assessment Score Assessment Details No data available for this section
== END 2024-07-19 13:35 | disposition home or self-care (01) ==
PROVIDERS: PCP Internal Medicine; Visit Provider Internal Medicine
DX: Z00.00 Encounter for general adult medical examination without abnormal findings (principal); Z86.19 Personal history of other infectious and parasitic diseases

== ENCOUNTER → 2024-07-19 12:37 | Outpatient (BNVA) | payer OTHER, SELFPAY | PROVIDERS: PCP Internal Medicine; Visit Provider Internal Medicine | DX: Z00.00 Encounter for general adult medical examination without abnormal findings (principal); Z86.19 Personal history of other infectious and parasitic diseases | CPT/HCPCS: 96127 ==